=== PATIENT | female | born 1980 | race Caucasian/White ===

== ENCOUNTER 2020-06-04 06:59 | Day surgery (SDC) | payer SELFPAY ==
[2020-05-29 17:45] VITALS: BMI 30.4
[2020-06-04] MEDS ORDERED: EPINEPHrine/PF 1 MG/1 ML (1:1,000) AMPULE ONE ×2 (07:38→13:35)
[2020-06-04] MEDS ORDERED: LIDOCAINE HCL 1%, 10 MG/ML (20ML VIAL) ONE ×3 (07:38→13:36)
[2020-06-04] MEDS ORDERED: BACITRACIN 15 GM TUBE TOPICAL OINTMENT ONE ×4 (07:38→15:25)
[2020-06-04] MEDS ORDERED: MIDAZOLAM HCL 2 MG/2 ML SINGLE DOSE VIAL ONE (07:42)
[2020-06-04] MEDS ORDERED: BENZOIN/ALOE VERA/STORAX/TOLU 58 ML BOTTLE ONE (08:05)
[2020-06-04] MEDS ORDERED: ROCURONIUM BROMIDE 50 MG/5 ML SYRINGE ONE (08:39)
[2020-06-04] MEDS ORDERED: PROPOFOL 20 ML ONE ×5 (08:39→13:27)
[2020-06-04] MEDS ORDERED: fentaNYL CITRATE 250 MCG/5 ML VIAL ONE ×2 (08:40→14:21)
[2020-06-04] MEDS ORDERED: KETOROLAC TROMETHAMINE 30 MG/1 ML VIAL ONE (11:07)
[2020-06-04] MEDS ORDERED: CLINDAMYCIN PHOSPHATE 600 MG/4 ML VIAL ONE ×2 (11:07→14:44)
[2020-06-04] MEDS ORDERED: ONDANSETRON 4 MG/2 ML VIAL ONE ×2 (11:07→16:17)
[2020-06-04] MEDS ORDERED: DEXAMETHASONE SOD PHOSPHATE 4 MG/1 ML VIAL ONE (11:07)
[2020-06-04] MEDS ORDERED: EPHEDRINE SULFATE/0.9% NACL/PF 50 MG/10 ML SYRINGE NR ONE (13:12)
[2020-06-04] MEDS ORDERED: DESFLURANE GAS 240 ML BOTTLE IH ONE (14:40)
[2020-06-04] MEDS ORDERED: HYDROmorphone HCl 2 MG/ML VIAL IVPB PRN ×3 (15:00→16:09)
[2020-06-04] MEDS ORDERED: ONDANSETRON 4 MG/2 ML VIAL IVPUSH PRN (15:59)
[2020-06-04] MEDS ORDERED: PROMETHAZINE HCL 25 MG/1 ML VIAL IVPUSH PRN (15:59)
[2020-06-04] MEDS ORDERED: ENOXAPARIN NA (PORCINE) 40 MG/0.4 ML DISP.SYRIN SQ ONE ×2 (15:59→16:07)
[2020-06-04] MEDS: ONDANSETRON 4 MG/2 ML VIAL IVPUSH PRN ×2 (16:18→19:54)
[2020-06-04] MEDS: LACTATED RINGERS SOLUTION 1,000 ML IV SCH (17:15)
[2020-06-04] MEDS: ACETAMINOPHEN 325 MG TABLET (FP) PO PRN (17:34)
[2020-06-04] MEDS: oxyCODONE HCL 5 MG TABLET PO PRN ×2 (17:35→22:03)
[2020-06-04] MEDS: CLINDAMYCIN 600MG PREMIX IVPB 600 MG/50 ML BAG IVPB SCH (20:11)
[2020-06-04] MEDS ORDERED: ZOLPIDEM TARTRATE 5 MG TABLET PO PRN (22:00)
[2020-06-04] MEDS: DOCUSATE SODIUM 100 MG CAPSULE (FP) PO SCH (22:03)
[2020-06-05] MEDS: CLINDAMYCIN 600MG PREMIX IVPB 600 MG/50 ML BAG IVPB SCH ×4 (03:11→21:02)
[2020-06-05] MEDS: ACETAMINOPHEN 325 MG TABLET (FP) PO PRN ×2 (03:13→08:20)
[2020-06-05] MEDS: ONDANSETRON 4 MG/2 ML VIAL IVPUSH PRN (04:24)
[2020-06-05] MEDS: oxyCODONE HCL 5 MG TABLET PO PRN ×5 (04:34→21:30)
[2020-06-05] MEDS: DOCUSATE SODIUM 100 MG CAPSULE (FP) PO SCH ×3 (06:07→21:03)
[2020-06-05] MEDS: LACTATED RINGERS SOLUTION 1,000 ML IV SCH (08:00)
[2020-06-05] MEDS ORDERED: ENOXAPARIN NA (PORCINE) 40 MG/0.4 ML DISP.SYRIN SQ ONE (16:00)
[2020-06-05] MEDS ORDERED: LOCK ITEM NR ONE (23:19)
[2020-06-06] MEDS: oxyCODONE HCL 5 MG TABLET PO PRN ×3 (01:19→12:27)
[2020-06-06] MEDS: CLINDAMYCIN 600MG PREMIX IVPB 600 MG/50 ML BAG IVPB SCH ×2 (02:17→10:09)
[2020-06-06 05:04] VITALS: BP 139/74; PULSE 95; TEMP 98.6
[2020-06-06] MEDS: DOCUSATE SODIUM 100 MG CAPSULE (FP) PO SCH ×2 (05:30→14:20)
[2020-06-06] MEDS ORDERED: BACITRACIN/POLYMYXIN B SULFATE 15 GM TUBE TP SCH (06:00)
[2020-06-06] MEDS ORDERED: PT OWN MED DRAWER 7, Y5N ONE (10:08)
[2020-06-06] MEDS ORDERED: ENOXAPARIN NA (PORCINE) 40 MG/0.4 ML DISP.SYRIN SQ ONE (14:15)
== END 2020-06-06 14:37 | disposition home or self-care (01) ==
LOC: FASUSAT 06:59 → FM/S 17:04 → FASUSAT 06-06 14:37
PROVIDERS: ATTEND Surgery
CPT/HCPCS: 81025; 94760